=== PATIENT | female | born 1975 | race Hispanic/Latino ===

== ENCOUNTER 2019-06-23 13:12 | Emergency (ER) | payer OTHER, SELFPAY ==
--- NOTE | ~2019-06-23 | US_ITS ---
EXAMINATION: US pelvic complete w TV DATE: 06/23/2019 14:32 INDICATION: Ovarian cyst. Back pain. TECHNIQUE: Multiple transabdominal and endovaginal sonographic images of the pelvis were obtained. COMPARISON: None. FINDINGS: The uterus measures 5.9 x 4.7 x 7.0 cm. The endometrial complex measures 12 mm in thickness. The rig ht ovary measures 1.9 x 1.8 x 2.8 cm. The left ovary measures 2.6 x 2.4 x 1.6 cm. There is normal vas cular flow in the ovaries. There is no free fluid in the pelvis. IMPRESSION: 1. Normal pelvic ultrasound. Reviewed, dictated and finalized at location A.
--- NOTE | ~2019-06-23 | XR_ITS ---
EXAMINATION: XR lumbar spine min 4V DATE: 06/23/2019 14:32 INDICATION: Low back pain TECHNIQUE: Anteroposterior, lateral and left and right oblique views of the lumbar spine and cone-yanci n lateral view of the lumbosacral junction were obtained. COMPARISON: None. FINDINGS: Very mild levocurvature centered at L1. 2 mm anterolisthesis L4 on L5. 2 mm retrolisthesis L5 on S1. Vertebral body heights are normal. Mild to moderate disc height loss at L4-L5. Mild disc height loss at L5-S1. No fracture or pars interarticularis defects identified. Moderate right-sided and severe le ft-sided facet osteoarthritis at L4-L5. Otherwise mild lumbar facet osteoarthritis. Sacrum and bilate ral sacroiliac joints are normal. IMPRESSION: 1. Moderate spondylosis at L4-L5. Otherwise mild lumbar spondylosis. Reviewed, dictated and finalized at location A.
[2019-06-23 13:15] VITALS: BP 107/89; PULSE 77; RESP 16; TEMP 37.6; O2SAT 100
[2019-06-23 14:06] LABS: Add Urine Microscopic? YES; Appearance Urine Clear (Clear); Bilirubin Urine Negative (Negative); Blood Urine 1+ (Negative); Color Urine Yellow (Yellow); Glucose Urine UA Negative (Negative); Ketones Urine Negative (Negative); Leukocyte Esterase Ur Negative LEU/UL (Negative); Mucus Urine Rare /lpf; Nitrate Urine Negative (Negative); Protein Urine Negative (Negative); RBC Urine 0-2 /hpf (0-2); Specific Grav Ur 1.017 (1.001-1.035); Squamous Epithelial Cell Urine Moderate /hpf (Few); Urobilinogen Urine Negative mg/dL (<2.0); WBC Urine 0-3 /hpf
--- NOTE | 2019-06-23 14:48 | ED.BACK ---
HPI - Back Pain/Injury General Chief Complaint: Back Pain/Injury Stated Complaint: back pain Time Seen by Provider: 06/23/19 13:20 Source: patient Mode of arrival: ambulatory Limitations: no limitations History of Present Illness HPI Narrative: Patient presents with chief complaint of back pain that has been present for 2 months. Patient states she has had back pain in the past. Patient states she saw her primary care doctor Chase on Thursday and he ordered a x-ray and pelvic ultrasound which the patient was supposed to have done tomorrow but she states she was tired of dealing with the pain. Patient reports the pain is low in her back and is also in bilateral sides of her pelvis. Patient states that her primary care wanted to rule out vertebral issues as well as ovarian cysts as she has been told she had ovarian cyst in the past. Patient states intermittently she has radiation of pain down her left leg. She states it does not present with certain activity. Patient denies saddle paresthesias, inability to ambulate, Loss of strength or sensation in her extremities, or loss of bowel or bladder function. Patient states she has been taking Tylenol and ibuprofen for her pain without remittance. Patient denies urinary symptoms. Patient denies recent trauma to her back. Related Data Home Medications Medication Instructions Recorded Confirmed gabapentin 300 mg PO TID 06/23/19 meloxicam 15 mg PO DAILY 06/23/19 Allergies Allergy/AdvReac Type Severity Reaction Status Date / Time No Known Allergies Allergy Unknown Verified 06/23/19 13:19 Review of Systems Review of Systems: Narrative: CONSTITUTIONAL: Denies fever, chills, or sweats. EYES: Denies visual changes, redness, or discharge. ENT: Denies rhinorrhea, congestion, sore throat, or otalgia. CARDIOVASCULAR: Denies chest pain, palpitations, or edema. RESPIRATORY: Denies cough or dyspnea. GASTROINTESTINAL: Denies abdominal pain, nausea, vomiting, or diarrhea. GENITOURINARY: Denies dysuria or hematuria. Denies vaginal discharge or bleeding. SKIN: Denies rash or itching. MUSCULOSKELETAL: Reports back pain denies joint pain, or myalgia. NEUROLOGIC: Denies headache, numbness, dizziness, or weakness. PSYCHIATRIC: Denies anxiety or depression. [facility] Social History Social History Gender identity (if verbalized by the patient): Female Exam Narrative: Exam Narrative: GENERAL: Well-appearing, well-nourished, and in no acute distress. HEAD: Normocephalic, atraumatic. EYES: PERRLA and EOMI. ENT: Nares clear, no rhinorrhea or epistaxis. Mucous membranes moist. Oropharynx without tonsillar hypertrophy exudate or other lesions. Bilateral TMs pearly goss nonbulging NECK: Supple. No adenopathy or masses. No carotid bruits or JVD CHEST: Clear to auscultation. No respiratory distress. No wheezes rales or rhonchi HEART: Regular rate and rhythm. No murmur heard. ABDOMEN: Soft, patient reports diffuse right and left sided tenderness, no rigidity of abdomen rebound or gaurding. nondistended, normal active bowel sounds. BACK: No tenderness with palpation of spine. No outward signs of injury noted. ROM intact. EXTREMITIES: Normal range of motion. No edema. Sensation and motor function intact. SKIN: Warm, dry, no rash. NEURO: No focal deficits. Alert and oriented x3. PSYCH: Normal mood and affect. Course Vital Signs Vital signs: Vital Signs Temperature 99.7 F H 06/23/19 13:15 Pulse Rate 77 06/23/19 13:15 Respiratory Rate 16 06/23/19 13:15 Blood Pressure 107/89 06/23/19 13:15 Pulse Oximetry 100 06/23/19 13:15 Temperature 99.3 F 06/23/19 14:57 Pulse Rate 70 06/23/19 14:57 Respiratory Rate 16 06/23/19 14:57 Blood Pressure 121/72 06/23/19 14:57 Pulse Oximetry 99 06/23/19 14:57 MDM - Back Pain/Injury MDM Narrative Medical decision making narrative: Consult with Abril in Dr Chase pérez. They have prescribed patient meloxicam, baclofen, and gabepen
[2019-06-23 14:57] VITALS: BP 121/72; PULSE 70; RESP 16; TEMP 37.4; O2SAT 99
== END 2019-06-23 15:19 | disposition home or self-care (01) ==
PROVIDERS: Physician Assistant; Emergency Provider Emergency Medicine; PCP Internal Medicine
DX: M54.41 Lumbago with sciatica, right side (principal); M47.816 Spondylosis without myelopathy or radiculopathy, lumbar region
CPT/HCPCS: 72110; 76830; 76856; 81001; 99284

== ENCOUNTER 2019-09-27 13:57 | Emergency (ER) | payer OTHER, SELFPAY ==
--- NOTE | ~2019-09-27 | XR_ITS ---
EXAMINATION: XR chest 2V EXAM DATE: 09/27/2019 14:44 INDICATION: Mid chest pain, facial paresthesia. TECHNIQUE: Frontal and lateral projections of the chest obtained and reviewed. There is no prior clary dy for comparison. FINDINGS: The lungs are clear. There are no pleural effusions. The cardiomediastinal silhouette is within normal limits. There is no pneumothorax suspected. Mild thoracic dextroscoliosis. IMPRESSION: No acute cardiopulmonary findings. Reviewed, dictated and finalized at location B.
[2019-09-27 14:12] VITALS: BP 115/73; PULSE 68; RESP 20; TEMP 36.7; O2SAT 100
[2019-09-27 14:18] VITALS: PULSE 68
--- NOTE | 2019-09-27 14:22 | ECG_ITS ---
Measurements Intervals [place] Rate: 74 P: 65 [place]: 127 QRS: 79 QRSD: 106 T: 171 QT: 401 QTc: 446 Interpretive Statements SINUS RHYTHM NONSPECIFIC ST & T-WAVE ABNORMALITY- DIFFUSE LEADS BASELINE WANDER- I, II, III, AVR, AVL, AVF, V1-V6 BORDERLINE ECG Electronically Signed On 09-27-2019 16:52:18 CDT by Castillo Wu D.O.
[2019-09-27 14:51] LABS: Basophils Percent Auto 0.8 % (0.2-1.2); Eosinophils Absolute Auto 0.1 K/mm3 (0-0.3); Immature Granulocyte Absolute 0.01 K/mm3 (0.00-0.031); Immature Granulocyte Percent A 0.2 % (0-0.5); Lymphocytes Percent Auto 31.6 % (18.3-44.2); Mean Corpuscular HGB Conc 31.3 g/dl (32-36); Mean Corpuscular Hemoglobin 24.2 pg (26-34); Mean Corpuscular Volume 77.3 fl (80-100); Mean Platelet Volume 11.2 fl (7.4-10.4); Monocytes Absolute Auto 0.5 K/mm3 (0.1-0.6); Monocytes Percent Auto 9.1 % (2.6-8.5); Neutrophils Absolute Auto 2.9 K/mm3 (1.3-6.7); Neutrophils Percent Auto 56.3 % (45.5-73.1); Platelet Count Result 322 k/mm3 (150-375); Red Blood Count 4.14 M/mm3 (4.2-5.4); Red Cell Distribution Width 16.5 % (11.5-14.5); White Blood Count 5.1 K/mm3 (4.5-10.0)
[2019-09-27 15:07] LABS: Alanine Aminotransferase 12 U/L (4-35); Albumin Level 4.3 g/dL (3.5-5.1); Alkaline Phosphatase 67 U/L (38-126); Aspartate Amino Transferase 23 U/L (14-36); Bilirubin,Total 0.2 mg/dL (0.2-1.3); Blood Urea Nitrogen 12 mg/dL (7-17); Calcium 8.9 mg/dL (8.4-10.2); Carbon Dioxide 27 mmol/L (22-30); Chloride 106 mmol/L (98-107); Estimated CRCL calculation 80 ml/min; Estimated Glomerular Filt Rate > 60; Glucose 126 mg/dL (65-105); Potassium 3.7 mmol/L (3.4-5.0); Prothrombin Time 12.7 Seconds (11.1-14.7); Sodium 139 mmol/L (137-145)
[2019-09-27 15:08] LABS: Partial Thromboplastin Time 24.7 SECONDS (22.3-36.8)
[2019-09-27 15:10] LABS: D Dimer 0.37 ug/mL (<0.48)
[2019-09-27] MEDS: BELLADONNA ALK/PHENOB ELIX 10 ML, MAG HYDROX/ALUMINUM HYD/SIMETH 30 ML, LIDOCAINE HCL 2... PO (15:13)
[2019-09-27 15:15] VITALS: BP 123/70; PULSE 64; RESP 20; O2SAT 100
[2019-09-27 15:19] LABS: Troponin I < 0.012 ng/mL (0.000-0.034)
--- NOTE | 2019-09-27 15:28 | ED.GENADULT ---
HPI - General Adult General Chief complaint: Chest Pain Stated complaint: Left Side Numbness Time Seen by Provider: 09/27/19 14:14 History of Present Illness HPI narrative: Patient is a 44-year-old female who presents the ER with chest pain. [place]. Had some left-sided chest discomfort and then some numbness in her left arm and left face. Lasted for 30 minutes. Mild nausea. No dizziness. Has not had similar symptoms before. Denies runny nose/sore throat/productive cough. Has mother had a heart attack in her 70s. Related Data Home Medications Medication Instructions Recorded Confirmed gabapentin 300 mg PO TID 06/23/19 Allergies Allergy/AdvReac Type Severity Reaction Status Date / Time No Known Allergies Allergy Unknown Verified 09/27/19 14:29 Review of Systems Review of Systems: All systems reviewed & are unremarkable except as noted in HPI and below Constitutional: Constitutional: Denies chills, Denies fever(s) and Denies weakness ENT: Denies nasal congestion and Denies sore throat Cardiovascular: Cardiovascular: Reports chest pain, Denies rapid heart rate and Denies radiating jaw, neck or arm pain Respiratory: Respiratory: Denies cough, Denies dyspnea and Denies wheezing Gastrointestinal: Gastrointestinal: Denies abdominal pain, Reports nausea and Denies vomiting PMFSH Past Medical History Medical History (Updated 09/27/19 @ 18:08 by Scott Ramsey MD) Healthy female adult Surgical History Surgical History (Updated 09/27/19 @ 15:29 by Scott Ramsey MD) History of section Social History Social History (Updated 09/27/19 @ 15:29 by Scott Ramsey MD) Smoking status: Never smoker Gender identity (if verbalized by the patient): Female Exam Narrative: Exam Narrative: GENERAL: Well-appearing, well-nourished, and in no acute distress. HEAD: Normocephalic, atraumatic. ENT: Mucous membranes moist. CHEST: Clear to auscultation. No respiratory distress. HEART: Regular rate and rhythm. Normal peripheral pulses. ABDOMEN: Soft, nontender, nondistended. EXTREMITIES: Normal range of motion. No edema. SKIN: Warm, dry, no rash. NEURO: Alert and oriented x3. PSYCH: Normal mood and affect. Course Course Emergency Course: Troponin negative x2. D-dimer normal. Discharge home with follow-up with PCP. Vital Signs Vital signs: Vital Signs Temperature 98.1 F 09/27/19 14:12 Pulse Rate 68 09/27/19 14:12 Respiratory Rate 09/27/19 14:12 Blood Pressure 115/73 09/27/19 14:12 Pulse Oximetry 100 09/27/19 14:12 Temperature 98.1 F 09/27/19 14:12 Pulse Rate 64 09/27/19 15:15 Respiratory Rate 09/27/19 15:15 Blood Pressure 123/70 09/27/19 15:15 Pulse Oximetry 100 09/27/19 15:15 Medical Decision Making Vital Signs Vital Signs: Vital Signs Temperature 98.1 F 09/27/19 14:12 Pulse Rate 68 09/27/19 14:12 Respiratory Rate 09/27/19 14:12 Blood Pressure 115/73 09/27/19 14:12 Pulse Oximetry 100 09/27/19 14:12 Temperature 98.1 F 09/27/19 14:12 Pulse Rate 64 09/27/19 15:15 Respiratory Rate 09/27/19 15:15 Blood Pressure 123/70 09/27/19 15:15 Pulse Oximetry 100 09/27/19 15:15 Lab Data Result diagrams: 09/27/19 14:38 09/27/19 14:38 Labs: Lab Results 09/27/19 09/27/19 09/27/19 Range/Units 14:38 14:38 14:38 WBC 5.1 (4.5-10.0) K/mm3 RBC 4.14 L (4.2-5.4) M/mm3 Hgb 10.0 L (12.0-15.0) g/dL Hct 32.0 L (37.0-47.0) % MCV 77.3 L (80-100) fl MCH 24.2 L (26-34) pg MCHC 31.3 L (32-36) g/dl RDW 16.5 H (11.5-14.5) % Plt Count 322 (150-375) k/mm3 MPV 11.2 H (7.4-10.4) fl Immature Gran % (Auto) 0.2 (0-0.5) % Neut % (Auto) 56.3 (45.5-73.1) % Lymph % (Auto) 31.6 (18.3-44.2) % Perry % (Auto) 9.1 H (2.6-8.5) % Eos % (Auto) 2.0 (0-4.4) % Baso % (Auto) 0.8 (0.2-1.2) %
[2019-09-27 16:45] VITALS: BP 119/78; PULSE 59; RESP 20; O2SAT 100
[2019-09-27 17:48] LABS: Troponin I < 0.012 ng/mL (0.000-0.034)
[2019-09-27 18:39] VITALS: BP 106/62; PULSE 58; RESP 20; O2SAT 100
== END 2019-09-27 18:42 | disposition home or self-care (01) ==
PROVIDERS: Emergency Provider Emergency Medicine; PCP Internal Medicine
DX: R07.9 Chest pain, unspecified (principal)
CPT/HCPCS: 36415; 71046; 80053; 84484; 85025; 85380; 85610; 85730; 93005; 99284; A9270

== ENCOUNTER → 2020-09-08 00:51 | Outpatient (CLI) | payer OTHER, SELFPAY ==
[2020-09-08 17:56] LABS: SARS-CoV-2 RNA PCR Negative
== END ==
PROVIDERS: Anesthesiology; PCP Internal Medicine; Visit Provider Obstetrics & Gynecology
DX: Z01.812 Encounter for preprocedural laboratory examination (principal); Z20.822 Contact with and (suspected) exposure to COVID-19
CPT/HCPCS: C9803; U0003; U0005

== ENCOUNTER 2020-09-12 00:58 | Day surgery (SDC) | payer OTHER, SELFPAY ==
[2020-09-07 14:28] VITALS: BMI 26.4
--- NOTE | 2020-09-11 13:07 | WPDANESEPPF ---
Anes - Initial Pre Proc Eval Procedure: Operation Date: 09/12/20 09:30 Proposed Procedures p Cystoscopy, - Ehsan Esparza MD s Extensive Vaginal Mucosa Biopsy - Ehsan Esparza MD Date/Time: 09/11/20 13:07 Surgeon: Ehsan Esparza MD Pre Op Diagnosis: vaginal lesion, urethral diverticulum Patient Data Age: 45 Gender: F Height: 1.65 m Weight: 72 kg Allergies Allergy/AdvReac Type Severity Reaction Status Date / Time No Known Allergies Allergy Unknown Verified 09/12/20 07:58 Home Medications Medication Instructions Recorded Confirmed Type ibuprofen 600 mg PO PRN PRN 09/07/20 09/12/20 History Patient hx anesthesia problems: none Family hx anesthesia problems: none PMFSH Past Medical History Medical History (Updated 09/11/20 @ 13:08 by Filipe Vazquez MD) Healthy female adult Hyperlipidemia Overweight (BMI 25.0-29.9) Surgical History Surgical History (Updated 09/27/19 @ 15:29 by Scott Ramsey MD) History of section Social History Social History (Updated 09/27/19 @ 15:29 by Scott Ramsey MD) Smoking status: Never smoker Gender identity (if verbalized by the patient): Female Spiritual care concerns: No Anes - Eval Final PreProcedure Day of Procedure 09/11/20 13:07 Patient weight: overweight Heart: regular rate and rhythm Lungs: clear to auscultation and normal air movement Airway: Mallampati scale class II Neurological: alert and oriented Last oral intake: >/= 8 hours ASA classification: II Emergent: no Anesthetic plan: proceed Anesthesia type and monitoring: general GIVS and LMA Informed Consent: The patient's anesthetic plan and its attendant risks and benefits were discussed with the patient/family/POA. Questions were solicited and answers provided to the satisfaction of the patient/family/POA.
[2020-09-12] MEDS: LACTATED RINGERS 1,000 ML 30 ML IV CONT (07:50)
[2020-09-12] MEDS: ACETAMINOPHEN 500 MG TABLET 1000 MG PO (07:54)
[2020-09-12 08:00] VITALS: BP 99/77; PULSE 71; RESP 18; TEMP 36.8; O2SAT 100
--- NOTE | 2020-09-12 09:13 | WPDHPUPDATE1 ---
History and Physical Update Update Date/Time: 09/12/20 09:13 History and Physical has been reviewed, including an updated exam of the patient. There are NO changes in the patient's condition. Risks, benefits, and alternatives have been discussed and questions answered. Patient agrees to proceed with procedure.
[2020-09-12 10:14] VITALS: BP 110/68; PULSE 72; RESP 14; O2SAT 100
--- NOTE | 2020-09-12 10:21 | P.OP_ITS ---
Procedure Note - Detailed Date of Procedure 09/12/20 Pre-op Diagnosis vaginal lesion, urethral diverticulum Post-op Diagnosis other (Cervical mass, normal urethra) Procedure Performed Cystoscopy and urethroscopy, resection of the cervical mass Surgeon Ehsan Esparza MD Anesthesia MAC Indications Suburethral fullness, vaginal mass Findings The patient was taken the operating room. She was prepped and draped in the dorsal lithotomy position after induction of mac anesthesia. A speculum was placed in vagina. Cervix grasped with tenaculum. There was a mass on the cervix. A suture was placed around the base the mass. It was polypoid in configuration. There was a narrow stalk. The stalk was ligated and then transected with cautery. It was thoroughly cauterized. Cystoscopy was then performed. The cystoscope was placed in the bladder. The bladder was distended. The bladder appeared normal. The urethra was then thoroughly examined and found to be intact and normal. Description of Procedure The patient was taken the operating room. She was prepped and draped in the dorsal lithotomy position after induction of mac anesthesia. A speculum was placed in vagina. Cervix grasped with tenaculum. There was a mass on the cervix. A suture was placed around the base the mass. It was polypoid in configuration. There was a narrow stalk. The stalk was ligated and then transected with cautery. It was thoroughly cauterized. Cystoscopy was then performed. The cystoscope was placed in the bladder. The bladder was distended. The bladder appeared normal. The urethra was then thoroughly examin ed and found to be intact and normal. The bladder was drained and the hysteroscope was withdrawn. The patient tolerated the procedure well. She was taken recovery room stable condition. Sponge lap and needle counts were correct x2. Estimated Blood Loss 5 Drains No Packing No Pathology yes Complications No immediate complications Condition stable Disposition same day
[2020-09-12 10:44] VITALS: BP 109/66; PULSE 66; RESP 14; O2SAT 100
[2020-09-12 11:14] VITALS: BP 124/86; PULSE 63; RESP 14
[2020-09-12 11:30] VITALS: BP 107/74; PULSE 60; RESP 14
== END 2020-09-12 11:40 | disposition home or self-care (01) ==
PROVIDERS: PCP Internal Medicine; Visit Provider Obstetrics & Gynecology
PROC: 0TJB8ZZ Inspection of Bladder, Via Natural or Artificial Opening Endoscopic (ICD-10-PCS; CPT 52000; principal; 2020-09-12 09:30)
DX: N84.1 Polyp of cervix uteri (principal); E78.5 Hyperlipidemia, unspecified
CPT/HCPCS: 52000; 57500; 88305; A9270; J2250; J2704; J3010; J7030; J7120

== ENCOUNTER 2021-04-02 21:50 | Emergency (ER) | payer OTHER, SELFPAY ==
--- NOTE | ~2021-04-02 | XR_ITS ---
EXAMINATION: XR chest 2V EXAM DATE: 04/02/2021 22:21 INDICATION: CP @ Rt Side Then Moved To All Over Chest, Cough . TECHNIQUE: Frontal and lateral projections of the chest obtained and reviewed. Comparison is made to prior examination from 09/27/2019. FINDINGS: The lungs are clear. There are no pleural effusions. The cardiomediastinal silhouette is within normal limits. There is no pneumothorax suspected. Mild thoracic scoliosis. IMPRESSION: No acute cardiopulmonary findings. Reviewed, dictated and finalized at location A. [facility] PRE NEED CONSULTANT
[2021-04-02 21:58] VITALS: BP 137/71; PULSE 81; RESP 20; TEMP 36.7; O2SAT 100
--- NOTE | 2021-04-02 22:04 | ECG_ITS ---
Measurements Intervals [place] Rate: 79 P: 56 [place]: 139 QRS: 9 QRSD: 94 T: 47 QT: 353 QTc: 407 Interpretive Statements SINUS RHYTHM NORMAL ECG Electronically Signed On 04-03-2021 6:12:45 [employer] by Castillo Wu D.O.
[2021-04-02 22:18] LABS: Basophils Percent Auto 0.5 % (0.2-1.2); Eosinophils Absolute Auto 0.1 K/mm3 (0-0.3); Eosinophils Percent Auto 2.2 % (0-4.4); Hematocrit 34.2 % (37.0-47.0); Hemoglobin 10.7 g/dL (12.0-15.0); Lymphocytes Absolute Auto 1.67 K/mm3 (0.9-3.2); Lymphocytes Percent Auto 40.8 % (18.3-44.2); Mean Corpuscular HGB Conc 31.3 g/dl (32-36); Mean Corpuscular Hemoglobin 24.6 pg (26-34); Mean Corpuscular Volume 78.6 fl (80-100); Mean Platelet Volume 10.6 fl (7.4-10.4); Monocytes Absolute Auto 0.8 K/mm3 (0.1-0.6); Monocytes Percent Auto 18.8 % (2.6-8.5); Neutrophils Absolute Auto 1.5 K/mm3 (1.3-6.7); Neutrophils Percent Auto 37.7 % (45.5-73.1); Platelet Count Result 268 k/mm3 (150-375); Red Blood Count 4.35 M/mm3 (4.2-5.4); Red Cell Distribution Width 16.9 % (11.5-14.5); White Blood Count 4.1 K/mm3 (4.5-10.0)
[2021-04-02 22:26] LABS: Alanine Aminotransferase 15 U/L (4-35); Albumin Level 4.7 g/dL (3.5-5.1); Alkaline Phosphatase 88 U/L (38-126); Anion Gap 12 mmol/L (8-16); Aspartate Amino Transferase 23 U/L (14-36); Bilirubin,Total 0.1 mg/dL (0.2-1.3); Blood Urea Nitrogen 6 mg/dL (7-17); Calcium 9.8 mg/dL (8.4-10.2); Carbon Dioxide 24 mmol/L (22-30); Chloride 105 mmol/L (98-107); Estimated CRCL calculation 91 ml/min; Estimated Glomerular Filt Rate > 60; Glucose 98 mg/dL (65-110); Lipase 67 U/L (23-300); Potassium 3.6 mmol/L (3.4-5.0); Sodium 141 mmol/L (137-145)
[2021-04-02 22:28] LABS: Partial Thromboplastin Time 26.1 SECONDS (22.3-36.8)
[2021-04-02 22:38] LABS: Troponin I < 0.012 ng/mL (0.000-0.034)
--- NOTE | 2021-04-03 01:14 | PC.NURSE ---
Pt called for vitals, no answer.
--- NOTE | 2021-04-03 02:17 | PC.NURSE ---
Pt called for room, no answer
--- NOTE | 2021-04-03 02:29 | PC.NURSE ---
Pt called for room at this time, no answer.
== END 2021-04-03 03:48 | disposition left against medical advice (07) ==
LOC: ANHED 04-03 03:21
PROVIDERS: Emergency Provider Emergency Medicine; PCP Internal Medicine
DX: R07.9 Chest pain, unspecified (principal)
CPT/HCPCS: 36415; 71046; 80053; 83690; 84484; 85025; 85610; 85730; 93005; 99199